=== PATIENT | female | born 1970 | race Caucasian/White ===

== ENCOUNTER 2021-10-23 19:09 | Inpatient (IN) | payer BC ==
[~2021-10-23] VITALS: Ht 165.1 cm; Wt 158.8 kg
[2021-10-23] MEDS ORDERED: ONDANSETRON HCL 4MG/2ML INJ IV STA (19:21)
[2021-10-23] MEDS ORDERED: MORPHINE SULFATE 4 MG/ML CPJ (NOT FOR IM USE) IV STA (19:21)
[2021-10-23] MEDS ORDERED: SODIUM CHLORIDE 0.9% 1,000 ML IV ONE (19:30)
[2021-10-23 21:27] LABS: HEMATOCRIT. 41.8 % (36.0-48.0); HEMOGLOBIN. 13.5 g/dL (12.0-16.0); MEAN CORPUSCULAR HEMOGLOBIN 26.7 pg (28.0-32.0); MEAN CORPUSCULAR VOLUME 82.8 fL (81.0-99.0); MEAN PLATELET VOLUME 8.1 fl (7.4-10.4); PLATELET 438 x1000/uL (130-400); RED BLOOD CELL COUNT 5.05 mill/uL (4.2-5.4); RED CELL DISTRIBUTION WIDTH 15.5 % (11.6-14.6)
[2021-10-23 21:29] LABS: CHLORIDE 102 mEq/L (98-107)
[2021-10-23 22:20] LABS: PLATELET ESTIMATE INCREASED
[2021-10-23] MEDS ORDERED: MORPHINE SULFATE 4 MG/ML CPJ (NOT FOR IM USE) IV NR (23:45)
[2021-10-24] MEDS ORDERED: MORPHINE SULFATE 4 MG/ML CPJ (NOT FOR IM USE) IV ONE ×2 (01:00→03:15)
[2021-10-24 01:08] LABS: CLARITY URINE CLEAR (CLEAR); COLOR URINE YELLOW (YELLOW); KETONES URINE NEGATIVE (NEGATIVE); LEUKOCYTE ESTERASE URINE NEGATIVE (NEGATIVE); NITRITE URINE NEGATIVE (NEGATIVE); OCCULT BLOOD URINE NEGATIVE (NEGATIVE); PH URINE 6.5 (4.5-8.0); PROTEIN URINE NEGATIVE (NEGATIVE); SPECIFIC GRAVITY URINE 1.008 (1.005-1.030); UROBILINOGEN URINE 0.2 E.U./dL (0.2-1.0)
[2021-10-24] MEDS ORDERED: METRONIDAZOLE 500 MG PREMIX 100 ML IV ONE (02:30)
[2021-10-24] MEDS ORDERED: PIPERACILLIN/TAZ 3.375G PREMIX 50 ML IV ONE (02:30)
[2021-10-24] MEDS ORDERED: SODIUM CHLORIDE 0.9% 1,000 ML IV ONE (02:30)
[2021-10-24] MEDS ORDERED: HYDROMORPHONE HCL/PF 2MG/ML CPJ IM PRN (05:00)
[2021-10-24] MEDS: HYDROMORPHONE HCL/PF 2MG/ML CPJ IV PRN ×4 (05:15→21:26)
[2021-10-24] MEDS: SODIUM CHLORIDE 0.9% 1,000 ML IV SCH ×3 (05:21→17:50)
[2021-10-24 11:00] VITALS: BP 173/82
[2021-10-24] MEDS: PANTOPRAZOLE SODIUM 40 MG/VIAL IV SCH (11:02)
[2021-10-24 12:00] VITALS: BP 124/67
[2021-10-24 16:00] VITALS: BP 148/84
[2021-10-24] MEDS: METRONIDAZOLE 500 MG PREMIX 100 ML IV SCH ×2 (17:23→21:27)
[2021-10-24] MEDS ORDERED: DIPHENHYDRAMINE 50MG/ML VIAL IV PRN (17:30)
[2021-10-24] MEDS ORDERED: ACETAMINOPHEN 650MG SUPP PR PRN ×2 (17:30)
[2021-10-24] MEDS ORDERED: PIPERACILLIN/TAZ 3.375G PREMIX 50 ML IV SCH (17:30)
[2021-10-24] MEDS ORDERED: NALOXONE HCL 0.4MG/ML VIAL IV PRN (17:30)
[2021-10-24] MEDS: CLONIDINE HCL 0.3MG/24HR PATCH TD SCH (17:51)
[2021-10-24] MEDS: PIPERACILLIN/TAZOBACTAM 3.375 G in DEXTROSE 5% WATER 50 ML IV SCH ×2 (17:52→23:15)
[2021-10-24 20:00] VITALS: BP 123/69
[2021-10-25] VITALS: BP 136/70
[2021-10-25] MEDS: SODIUM CHLORIDE 0.9% 1,000 ML IV SCH ×3 (03:30→22:41)
[2021-10-25 04:00] VITALS: BP 135/71
[2021-10-25 04:10] LABS: BASOPHILS % 0.3 % (0.0-2.0); EOSINOPHILS % 0.2 % (0.0-5.0); HEMATOCRIT. 33.4 % (36.0-48.0); HEMOGLOBIN. 10.9 g/dL (12.0-16.0); LYMPHOCYTES % 8.5 % (20.0-50.0); MEAN CORPUSCULAR HEMOGLOBIN 27.3 pg (28.0-32.0); MEAN CORPUSCULAR VOLUME 83.5 fL (81.0-99.0); MEAN PLATELET VOLUME 7.6 fl (7.4-10.4); MONOCYTES % 4.2 % (2.0-8.0); NEUTROPHILS % 86.8 % (40.0-76.0); PLATELET 335 x1000/uL (130-400); RED CELL DISTRIBUTION WIDTH 16.1 % (11.6-14.6)
[2021-10-25] MEDS: HYDROMORPHONE HCL/PF 2MG/ML CPJ IV PRN ×2 (05:52→16:16)
[2021-10-25] MEDS: METRONIDAZOLE 500 MG PREMIX 100 ML IV SCH ×2 (05:56→13:16)
[2021-10-25] MEDS: PIPERACILLIN/TAZOBACTAM 3.375 G in DEXTROSE 5% WATER 50 ML IV SCH ×3 (05:56→20:39)
[2021-10-25] MEDS: ONDANSETRON HCL 4MG/2ML INJ IV PRN ×3 (07:20→20:39)
[2021-10-25 08:00] VITALS: BP 129/77
[2021-10-25] MEDS: PANTOPRAZOLE SODIUM 40 MG/VIAL IV SCH (09:03)
[2021-10-25 12:00] VITALS: BP_SYST 152; BP_SYST 154; BP_DIAS 81; BP_DIAS 86
[2021-10-25 16:00] VITALS: BP 152/86
[2021-10-25] MEDS ORDERED: CITA20TA75 PO (19:41)
[2021-10-25] MEDS ORDERED: ZONI25CA13 PO (19:43)
[2021-10-25] MEDS ORDERED: VALS160T28 PO (19:44)
[2021-10-25 20:00] VITALS: BP 155/79
[2021-10-25] MEDS ORDERED: NON FORMULARY PATIENT HOME MED XX SCH ×3 (22:00)
[2021-10-25] MEDS: CITALOPRAM HYDROBROMIDE 10MG TABLET PO SCH (22:41)
[2021-10-26] MEDS: ONDANSETRON HCL 4MG/2ML INJ IV PRN ×2 (03:11→14:38)
[2021-10-26 04:11] LABS: HEMATOCRIT. 31.3 % (36.0-48.0); HEMOGLOBIN. 10.1 g/dL (12.0-16.0); MEAN CORPUSCULAR HEMOGLOBIN 26.9 pg (28.0-32.0); MEAN CORPUSCULAR VOLUME 82.9 fL (81.0-99.0); MEAN PLATELET VOLUME 7.6 fl (7.4-10.4); PLATELET 357 x1000/uL (130-400); RED BLOOD CELL COUNT 3.77 mill/uL (4.2-5.4); RED CELL DISTRIBUTION WIDTH 15.4 % (11.6-14.6)
[2021-10-26] MEDS ORDERED: *PATIENT'S OWN MEDICATION STORAGE XX SCH (04:30)
[2021-10-26 04:33] LABS: PLATELET ESTIMATE NORMAL
[2021-10-26] MEDS: PIPERACILLIN/TAZOBACTAM 3.375 G in DEXTROSE 5% WATER 50 ML IV SCH ×3 (05:37→21:46)
[2021-10-26 08:00] VITALS: BP 148/86
[2021-10-26] MEDS: LOSARTAN POTASSIUM 100 MG TABLET PO SCH (09:23)
[2021-10-26] MEDS: PANTOPRAZOLE SODIUM 40 MG/VIAL IV SCH (09:23)
[2021-10-26] MEDS: ZONISAMIDE 25 MG PO SCH ×2 (09:24→17:45)
[2021-10-26] MEDS: SODIUM CHLORIDE 0.9% 1,000 ML IV SCH ×2 (09:43→21:46)
[2021-10-26 12:00] VITALS: BP 155/79
[2021-10-26] MEDS: IBUPROFEN 400MG TABLET PO PRN ×2 (15:14→21:48)
[2021-10-26 16:00] VITALS: BP 152/83
[2021-10-26 20:00] VITALS: BP 117/67
[2021-10-26] MEDS: CITALOPRAM HYDROBROMIDE 10MG TABLET PO SCH (21:46)
[2021-10-27] VITALS: BP 150/77
[2021-10-27 04:00] VITALS: BP 116/71
[2021-10-27] MEDS: PIPERACILLIN/TAZOBACTAM 3.375 G in DEXTROSE 5% WATER 50 ML IV SCH ×3 (05:16→21:33)
[2021-10-27] MEDS: SODIUM CHLORIDE 0.9% 1,000 ML IV SCH (05:16)
[2021-10-27 06:43] LABS: BASOPHILS % 0.4 % (0.0-2.0); EOSINOPHILS % 0.7 % (0.0-5.0); HEMATOCRIT. 29.6 % (36.0-48.0); HEMOGLOBIN. 9.6 g/dL (12.0-16.0); LYMPHOCYTES % 7.8 % (20.0-50.0); MEAN CORPUSCULAR VOLUME 83.3 fL (81.0-99.0); MEAN PLATELET VOLUME 7.9 fl (7.4-10.4); MONOCYTES % 4.1 % (2.0-8.0); PLATELET 367 x1000/uL (130-400); RED BLOOD CELL COUNT 3.56 mill/uL (4.2-5.4); RED CELL DISTRIBUTION WIDTH 15.4 % (11.6-14.6)
[2021-10-27 07:52] VITALS: BP 134/80
[2021-10-27] MEDS: LOSARTAN POTASSIUM 100 MG TABLET PO SCH (09:03)
[2021-10-27] MEDS: IBUPROFEN 400MG TABLET PO PRN ×3 (09:03→21:46)
[2021-10-27] MEDS: PANTOPRAZOLE SODIUM 40 MG/VIAL IV SCH (09:03)
[2021-10-27] MEDS: ZONISAMIDE 25 MG PO SCH ×2 (09:04→17:18)
[2021-10-27 12:00] VITALS: BP 177/78
[2021-10-27 16:00] VITALS: BP 137/68
[2021-10-27 20:00] VITALS: BP 137/71
[2021-10-27] MEDS: CITALOPRAM HYDROBROMIDE 10MG TABLET PO SCH (21:33)
[2021-10-28] VITALS: BP 132/81
[2021-10-28] MEDS: KCL 20MEQ/100ML PREMIX 100 ML IV SCH ×4 (01:06→03:13)
[2021-10-28] MEDS: SODIUM CHLORIDE 0.9% 1,000 ML IV SCH ×3 (01:13→20:44)
[2021-10-28 04:00] VITALS: BP 142/75
[2021-10-28] MEDS: PIPERACILLIN/TAZOBACTAM 3.375 G in DEXTROSE 5% WATER 50 ML IV SCH ×3 (06:11→20:43)
[2021-10-28 07:30] LABS: BASOPHILS % 0.7 % (0.0-2.0); EOSINOPHILS % 1.3 % (0.0-5.0); HEMATOCRIT. 30.8 % (36.0-48.0); HEMOGLOBIN. 10.1 g/dL (12.0-16.0); LYMPHOCYTES % 9.9 % (20.0-50.0); MEAN CORPUSCULAR VOLUME 82.3 fL (81.0-99.0); MEAN PLATELET VOLUME 7.4 fl (7.4-10.4); MONOCYTES % 5.2 % (2.0-8.0); NEUTROPHILS % 82.9 % (40.0-76.0); PLATELET 390 x1000/uL (130-400); RED BLOOD CELL COUNT 3.74 mill/uL (4.2-5.4); RED CELL DISTRIBUTION WIDTH 15.6 % (11.6-14.6)
[2021-10-28 07:45] LABS: CHLORIDE 112 mEq/L (98-107)
[2021-10-28 08:00] VITALS: BP 159/84
[2021-10-28] MEDS: LOSARTAN POTASSIUM 100 MG TABLET PO SCH (08:58)
[2021-10-28] MEDS: PANTOPRAZOLE SODIUM 40 MG/VIAL IV SCH (08:58)
[2021-10-28] MEDS: ZONISAMIDE 25 MG PO SCH ×2 (09:04→17:35)
[2021-10-28] MEDS: IBUPROFEN 400MG TABLET PO PRN ×2 (09:17→18:20)
[2021-10-28 16:00] VITALS: BP 140/78
[2021-10-28] MEDS ORDERED: POTASSIUM CHLORIDE 20MEQ TABLET SR PO NR (18:15)
[2021-10-28 20:00] VITALS: BP 131/74
[2021-10-28] MEDS: CITALOPRAM HYDROBROMIDE 10MG TABLET PO SCH (20:43)
[2021-10-29] VITALS: BP 132/77
[2021-10-29 04:00] VITALS: BP 127/73
[2021-10-29] MEDS: PIPERACILLIN/TAZOBACTAM 3.375 G in DEXTROSE 5% WATER 50 ML IV SCH ×3 (04:59→21:09)
[2021-10-29] MEDS: IBUPROFEN 400MG TABLET PO PRN ×2 (05:44→13:35)
[2021-10-29] MEDS: SODIUM CHLORIDE 0.9% 1,000 ML IV SCH ×2 (05:46→17:53)
[2021-10-29 07:49] LABS: BASOPHILS % 0.7 % (0.0-2.0); EOSINOPHILS % 3.7 % (0.0-5.0); HEMOGLOBIN. 9.9 g/dL (12.0-16.0); LYMPHOCYTES % 9.8 % (20.0-50.0); MEAN CORPUSCULAR HEMOGLOBIN 27.2 pg (28.0-32.0); MEAN CORPUSCULAR VOLUME 82.8 fL (81.0-99.0); MONOCYTES % 4.6 % (2.0-8.0); NEUTROPHILS % 81.2 % (40.0-76.0); PLATELET 362 x1000/uL (130-400); RED BLOOD CELL COUNT 3.63 mill/uL (4.2-5.4); RED CELL DISTRIBUTION WIDTH 15.3 % (11.6-14.6)
[2021-10-29 07:50] LABS: CHLORIDE 112 mEq/L (98-107)
[2021-10-29] MEDS: PANTOPRAZOLE SODIUM 40 MG/VIAL IV SCH (09:16)
[2021-10-29] MEDS: LOSARTAN POTASSIUM 100 MG TABLET PO SCH (09:16)
[2021-10-29] MEDS: ZONISAMIDE 25 MG PO SCH ×2 (09:16→17:53)
[2021-10-29] MEDS ORDERED: POTASSIUM CHLORIDE 20MEQ TABLET SR PO NR (14:30)
[2021-10-29 20:00] VITALS: BP 152/80
[2021-10-29] MEDS: CITALOPRAM HYDROBROMIDE 10MG TABLET PO SCH (21:09)
[2021-10-30] MEDS: SODIUM CHLORIDE 0.9% 1,000 ML IV SCH ×2 (03:47→23:07)
[2021-10-30] MEDS: IBUPROFEN 400MG TABLET PO PRN ×3 (05:30→21:26)
[2021-10-30] MEDS: PIPERACILLIN/TAZOBACTAM 3.375 G in DEXTROSE 5% WATER 50 ML IV SCH ×3 (05:49→21:16)
[2021-10-30 07:21] LABS: BASOPHILS % 0.5 % (0.0-2.0); EOSINOPHILS % 4.7 % (0.0-5.0); HEMATOCRIT. 28.6 % (36.0-48.0); HEMOGLOBIN. 9.6 g/dL (12.0-16.0); LYMPHOCYTES % 11.6 % (20.0-50.0); MEAN CORPUSCULAR HEMOGLOBIN 27.7 pg (28.0-32.0); MEAN CORPUSCULAR VOLUME 82.1 fL (81.0-99.0); MONOCYTES % 5.3 % (2.0-8.0); NEUTROPHILS % 77.9 % (40.0-76.0); PLATELET 372 x1000/uL (130-400); RED BLOOD CELL COUNT 3.48 mill/uL (4.2-5.4); RED CELL DISTRIBUTION WIDTH 15.5 % (11.6-14.6)
[2021-10-30 07:22] LABS: CHLORIDE 109 mEq/L (98-107)
[2021-10-30 08:00] VITALS: BP 134/80
[2021-10-30] MEDS: PANTOPRAZOLE SODIUM 40 MG/VIAL IV SCH (09:00)
[2021-10-30] MEDS: LOSARTAN POTASSIUM 100 MG TABLET PO SCH (09:23)
[2021-10-30] MEDS: ZONISAMIDE 25 MG PO SCH ×2 (09:26→17:09)
[2021-10-30 12:00] VITALS: BP 147/95
[2021-10-30 16:00] VITALS: BP 142/84
[2021-10-30 20:00] VITALS: BP 166/86
[2021-10-30] MEDS: CITALOPRAM HYDROBROMIDE 10MG TABLET PO SCH (21:16)
[2021-10-31] VITALS: BP 153/79
[2021-10-31 04:00] VITALS: BP 150/88
[2021-10-31] MEDS: IBUPROFEN 400MG TABLET PO PRN (05:05)
[2021-10-31] MEDS: PIPERACILLIN/TAZOBACTAM 3.375 G in DEXTROSE 5% WATER 50 ML IV SCH ×2 (05:06→14:00)
[2021-10-31] MEDS: ZONISAMIDE 25 MG PO SCH ×2 (08:58→17:00)
[2021-10-31] MEDS: LOSARTAN POTASSIUM 100 MG TABLET PO SCH (08:58)
[2021-10-31] MEDS: PANTOPRAZOLE SODIUM 40 MG/VIAL IV SCH (08:58)
[2021-10-31] MEDS: CLONIDINE HCL 0.3MG/24HR PATCH TD SCH (09:00)
[2021-10-31] MEDS: SODIUM CHLORIDE 0.9% 1,000 ML IV SCH (10:09)
[2021-10-31] MEDS ORDERED: CLONIDINE 0.1MG TABLET PO PRN (11:30)
[2021-10-31 15:47] VITALS: BP 177/90
== END 2021-10-31 17:30 | disposition home or self-care (01) | DRG 871 ==
LOC: ER 19:09 → 6EST 10-24 03:15 → EDBEDREQ 10-24 03:24 → EDBEDREQTM 10-24 03:24 → 6EST 10-29 12:00
PROVIDERS: ADMIT Internal Medicine; ATTEND Internal Medicine
DX: A41.9 Sepsis, unspecified organism (principal); K65.9 Peritonitis, unspecified; K57.20 Diverticulitis of large intestine with perforation and abscess without bleeding; Z68.43 Body mass index [BMI] 50.0-59.9, adult; D64.9 Anemia, unspecified; E66.01 Morbid (severe) obesity due to excess calories; G43.909 Migraine, unspecified, not intractable, without status migrainosus; I10 Essential (primary) hypertension; Z20.822 Contact with and (suspected) exposure to COVID-19; K44.9 Diaphragmatic hernia without obstruction or gangrene; K21.9 Gastro-esophageal reflux disease without esophagitis; Z93.3 Colostomy status; Z88.5 Allergy status to narcotic agent; Z91.041 Radiographic dye allergy status; Z79.899 Other long term (current) drug therapy
CPT/HCPCS: 36415; 74018; 74176; 80048; 80053; 81003; 82378; 83605; 85025; 87426; 93005; 97162; 99285; C9113; J1170; J2270; J2405; J2543; J3480; J3490; J7030; J7040; J7060